=== PATIENT | male | born 1960 | race Caucasian/White ===

== ENCOUNTER 2017-11-25 09:19 | Day surgery (SDC) | payer OTHER ==
[~2017-11-25 09:19] MED LIST: Acetaminophen/HYDROcodone 325-5 MG Tab PO PRN; Lactated Ringers 1,000 ML IV SCH; ceFAZolin 2 GM in Premix Bag 1 BAG IV SCH
[2017-11-25] MEDS ORDERED: Ondansetron 4 MG/2 ML SDV ONE (09:45)
[2017-11-25] MEDS ORDERED: Lidocaine 2% 5 ML SDV ONE (09:45)
[2017-11-25] MEDS ORDERED: Propofol 200 MG/20 ML SDV ONE (09:46)
[2017-11-25] MEDS ORDERED: fentaNYL 250 MCG/5 ML SDV ONE (09:46)
[2017-11-25] MEDS ORDERED: Midazolam 1 MG/ML 2 ML SDV ONE (09:46)
--- NOTE | 2017-11-25 10:09 | PCM.PREANE ---
Preanesthetic Assessment - Anesthesia/Transfusion/Family Hx Anesthesia History: Prior Anesthesia Without Reaction Family History of Anesthesia Reaction: No Transfusion History: No Prior Transfusion(s) - Review of Systems General: No Symptoms Pulmonary: No Symptoms Cardiovascular: No Symptoms Gastrointestinal: No Symptoms Neurological: No Symptoms Other: Reports: None - Physical Assessment NPO Status Date: 11/24/17 NPO Status Time: 23:00 Height: 5 ft 11 in Weight: 99.79 kg ASA Class: 2 Mental Status: Alert & Oriented x3 Airway Class: Mallampati = 2 Dentition: Reports: Normal Dentition Thyro-Mental Finger Breadths: 3 Mouth Opening Finger Breadths: 3 ROM/Head Extension: Full Lungs: Clear to Auscultation, Normal Respiratory Effort Cardiovascular: Regular Rate, Regular Rhythm - Allergies Allergies/Adverse Reactions: Allergies Allergy/AdvReac Type Severity Reaction Status Date / Time No Known Allergies Allergy Verified 11/19/17 10:42 - Acknowledgements Anesthesia Type Planned: General Anesthesia (LMA) Pt an Appropriate Candidate for the Planned Anesthesia: Yes Alternatives and Risks of Anesthesia Discussed w Pt/Guardian: Yes Pt/Guardian Understands and Agrees with Anesthesia Plan: Yes PreAnesthesia Questionnaire HEENT History: Reports: Other (See Below) Other HEENT History: wears glasses Cardiovascular History: Reports: Hypertension Respiratory History: Reports: Other (See Below) (Smoker 1PPD x 30years) Gastrointestinal History: Reports: None Genitourinary History: Reports: None Musculoskeletal History: Reports: Other (See Below) Other Musculoskeletal History: presently has fx left ankle Neurological History: Reports: None Psychiatric History: Reports: None Endocrine/Metabolic History: Reports: None Hematologic History: Reports: None Immunologic History: Reports: None Oncologic (Cancer) History: Reports: None Dermatologic History: Reports: None - Infectious Disease History Infectious Disease History: Reports: None - Past Surgical History Head Surgeries/Procedures: Reports: None GI Surgical History: Reports: Cholecystectomy Musculoskeletal Surgical History: Reports: Other (See Below) Other Musculoskeletal Surgeries/Procedures:: surgery to repair tip of rt ring finger due to injury - SUBSTANCE USE Smoking Status *Q: Current Every Day Smoker (30 pack year smoker) Tobacco Use Within Last Twelve Months: Cigarettes Recreational Drug Use History: No - HOME MEDS Home Medications: Home Meds Hydrocodone/Acetaminophen [Lorcet Hd 10-325 mg Tablet] 1 tab PO ASDIRECTED PRN 11/19/17 [History] - CURRENT (IN HOUSE) MEDS Current Meds: Current Medications Hydrocodone Bitart/Acetaminophen ([place] 325-5 Mg) 1 - 2 tab PO Q4H PRN PRN Reason: Pain Cefazolin Sodium/Dextrose 2 gm (/ Premix) 50 mls @ 100 mls/hr IV ONCALL LOIDA Lactated Ringer's (Ringers, Lactated) 1,000 mls @ 100 mls/hr IV ASDIRECTED LOIDA Discontinued Medications Fentanyl (Sublimaze) Confirm Administered Dose 250 mcg .ROUTE .STK-MED ONE Stop: 11/25/17 09:47 Lidocaine (Xylocaine-Mpf 2%) Confirm Administered Dose 5 ml .ROUTE .STK-MED ONE Stop: 11/25/17 09:46 Midazolam HCl (Versed 1 Mg/Ml) Confirm Administered Dose 2 mg .ROUTE .STK-MED ONE Stop: 11/25/17 09:47 Ondansetron HCl (Zofran) Confirm Administered Dose 4 mg .ROUTE .STK-MED ONE Stop: 11/25/17 09:46 Propofol (Diprivan 20 Ml) Confirm Administered Dose 200 mg .ROUTE .STK-MED ONE Stop: 11/25/17 09:47
[2017-11-25] MEDS ORDERED: Sodium Chloride 0.9% 20 ML ONE (10:52)
[2017-11-25] MEDS ORDERED: ceFAZolin 1 GM Vial ONE (10:52)
[2017-11-25] MEDS ORDERED: Bupivacaine 0.25% 10 ML SDV ONE (11:36)
--- NOTE | 2017-11-25 12:01 | PCM.OPNOTE ---
- General Post-Op/Procedure Note Date of Surgery/Procedure: 11/25/17 Operative Procedure(s): ORIF L bimalleolar ankle fracture (lateral malleolus only) Post-Op Diagnosis: L bimalleolar ankle fracture Anesthesia Technique: General LMA Primary Surgeon: Lyssa Caldera Commercial Portfolio Manager: Adela Santiago in mLs: 5 Condition: Good Free Text/Narrative:: tt=26 min #[id number]
[2017-11-25] MEDS: fentaNYL 100 MCG/2 ML SDV IVPUSH PRN ×4 (12:11→12:54)
[2017-11-25] MEDS ORDERED: Meperidine PF 25 MG/ML Syringe IVPUSH ONE (12:14)
[2017-11-25] MEDS ORDERED: Meperidine PF 25 MG/ML Syringe ONE (12:16)
--- NOTE | 2017-11-25 12:19 | PCM.POSTAN ---
POST ANESTHESIA ASSESSMENT - MENTAL STATUS Mental Status: Alert, Oriented - VITAL SIGNS Pulse Rate: 93 SaO2: 97 (O2 NC at 3l/m) Resp Rate: 14 Blood Pressure: 158/80 - RESPIRATORY Respiratory Status: Respiratory Rate WNL, Airway Patent, O2 Saturation Stable - CARDIOVASCULAR CV Status: Pulse Rate WNL, Blood Pressure Stable - GASTROINTESTINAL GI Status: No Symptoms - PAIN Pain Score: 6 (given meperidine for pain and shaking) - POST OP HYDRATION Hydration Status: Adequate & Stable
--- NOTE | 2017-11-25 13:40 | PCM48HPAN ---
Post Anesthesia Note - EVALUATION WITHIN 48HRS OF ANESTHETIC Vital Signs in Normal Range: Yes Patient Participated in Evaluation: Yes Respiratory Function Stable: Yes Airway Patent: Yes Cardiovascular Function Stable: Yes Hydration Status Stable: Yes Pain Control Satisfactory: Yes Nausea and Vomiting Control Satisfactory: Yes Mental Status Recovered: Yes Pulse Rate: 93 Resp Rate: 15 Blood Pressure: 158/80
--- NOTE | 2017-11-25 13:41 | OR ---
SURGEON: Lyssa Caldera MD DATE OF PROCEDURE: 11/25/2017 PREOPERATIVE DIAGNOSIS: Left ankle bimalleolar ankle fracture. POSTOPERATIVE DIAGNOSIS: Left ankle bimalleolar ankle fracture. PROCEDURE: Open reduction and internal fixation of left bimalleolar ankle fracture (lateral malleolus only). MORTARMAN: Adela Santiago PA-C. ANESTHESIA: General. ESTIMATED BLOOD LOSS: 10 mL. TOURNIQUET TIME: 26 minutes. COMPLICATIONS: None. DVT PROPHYLAXIS: PAS boot to the nonoperative leg. IMPLANTS USED: Laney 6-hole 1/3rd semitubular plate with combination of 3.5 mm cortical and 4.0 mm cancellous screws. BRIEF HISTORY: Yuriy is a 57-year-old male, who injured his left ankle. X-rays showed a left distal fibula fracture along with a small posterior malleolus fracture. This fracture pattern was found to be unstable. I did recommend surgical intervention. The risks and goals of procedure were discussed with the patient and were documented preoperatively. He agreed to proceed. DESCRIPTION OF PROCEDURE: The patient was properly identified and brought to the operating room. He was transferred from the OR cart and placed on the operating table in supine position. General anesthesia was administered. After adequate anesthesia was obtained, a well-padded tourniquet was applied to the left lower extremity. The left lower extremity was then prepped in standard fashion using ChloraPrep solution. It was then sterilely draped. A time-out was performed to ensure correct site and procedure. Preoperative antibiotics were given. The surgical site had been marked preoperatively. An Esmarch was used to exsanguinate the left lower extremity and the tourniquet was inflated to 250 mmHg. An incision was made over the lateral aspect of the ankle. Subcutaneous tissues were incised. The superficial peroneal nerve was not encountered. The fracture was quite transverse. It was opened and copiously irrigated with saline solution to remove the fracture hematoma. A pointed tenaculum was then used to reapproximate the fracture. An interfragmentary screw was then placed in standard lag fashion. A 3.5 mm screw was placed, which provided good provisional fixation. A 6-hole 1/3rd semitubular plate was then contoured to the bone. 3.5 mm screws were used proximally and 4.0 mm cancellous screws were used distally. His bone quality appeared to be quite good. After the holes were filled, C-arm imaging confirmed acceptable reduction of the fracture with good placement of the hardware. An external rotation stress view was performed, which showed no widening of the syndesmosis. I also used a bone hook with a lateral pull to check the syndesmosis as well. No widening was noted. The wound was then copiously irrigated with saline solution. Deep tissues were closed with 0 Vicryl. Tourniquet was deflated. No excess bleeding was noted. Subcutaneous tissues were closed with 2-0 Vicryl and the skin was closed with nikita. 0.5% Marcaine was injected along the incision site. Xeroform gauze was placed over the wound and a bulky dressing was applied. He was well placed in a well-padded posterior splint with medial and lateral stabilizing slabs. He was awakened from his anesthetic and transferred back to the operating room cart. He was brought to recovery room in stable condition. All needle and sponge counts were correct. MAT / SARAH BETH /[id number]
--- NOTE | 2017-11-25 16:49 | CR ---
EXAMINATION: Ankle radiograph HISTORY: ORIF COMPARISON: None TECHNIQUE: 6 fluoroscopic images provided FINDINGS/IMPRESSION: Operative control films demonstrate screw and plate fixation of a distal fibular fracture. Nondisplaced posterior malleolus fracture also noted.
== END 2017-11-25 14:10 | disposition home or self-care (01) ==
LOC: MW.SDS 09:19
PROVIDERS: ATTEND Orthopaedic Surgery
DX: S82.842A Displaced bimalleolar fracture of left lower leg, initial encounter for closed fracture (principal); I10 Essential (primary) hypertension; F17.210 Nicotine dependence, cigarettes, uncomplicated; W01.0XXA Fall on same level from slipping, tripping and stumbling without subsequent striking against object, initial encounter
CPT/HCPCS: 27792; 76000; 93005; A9270; J0690; J2175; J2250; J2405; J3010; J7120; 01480; J2704